=== PATIENT | female | born 2000 | race Caucasian/White ===

== ENCOUNTER 2021-02-03 17:50 | Emergency (ER) | payer OTHER ==
[2021-02-03] MEDS ORDERED: Sodium Chloride 0.9% 10 ML Syringe FLUSH PRN (18:09)
--- NOTE | 2021-02-03 18:19 | EDM.PDOC ---
ED HPI GENERAL MEDICAL PROBLEM - General Chief Complaint: [employer] Problem Stated Complaint: 4 WEEKS PREG AND CRAMPING Time Seen by Provider: 02/03/21 18:03 Source of Information: Reports: Patient, RN Notes Reviewed History Limitations: Reports: No Limitations - History of Present Illness INITIAL COMMENTS - FREE TEXT/NARRATIVE: Patient is a 20-year-old female who presents to the ER for being 4 weeks and having some lower abdominal cramping. Patient notes that her last menstrual period was January 25, 2021, she is a G1, P0. Notes that she has been having some abdominal discomfort for the last 2 days, does seem to be cramping and sharp in nature and does seem to come and go. She is not taking anything for the pain specifically. She thinks that she will be setting up with Dr. Martin for [employer] but has not had her first OB visit. She is denying any vaginal bleeding or other vaginal issues at today's visit. Does state that she is having urinary frequency but no urgency or dysuria. She is having some nausea but no vomiting or diarrhea. Patient states that she did take a home test last week and it was positive at that time. Lower Abdomen Pain Score (Numeric/FACES): 6 - Related Data Allergies Allergy/AdvReac Type Severity Reaction Status Date / Time No Known Allergies Allergy Verified 02/03/21 18:05 Home Meds: Home Meds Cefdinir [Omnicef] 300 mg PO BID 7 Days #14 cap 02/03/21 [Rx] Cholecalciferol (Vitamin D3) [Vitamin D3] 5,000 unit PO DAILY 02/03/21 [History] Past Medical History - Past Health History Medical/Surgical History: Denies Medical/Surgical History : 1 Para: 0 LMP (Approximate): Other (See Below) (12/29/20) - Infectious Disease History Infectious Disease History: Reports: Novel Coronavirus Social & Family History - Tobacco Use Tobacco Use Status *Q: Never Tobacco User - Recreational Drug Use Recreational Drug Use: No ED ROS GENERAL - Review of Systems Review Of Systems: Comprehensive ROS is negative, except as noted in HPI. ED EXAM, RENAL/ - Physical Exam Exam: See Below Exam Limited By: No Limitations General Appearance: Alert, WD/WN, No Apparent Distress Respiratory/Chest: No Respiratory Distress, Lungs Clear, Normal Breath Sounds, No Accessory Muscle Use, Chest Non-Tender Cardiovascular: Normal Peripheral Pulses, Regular Rate, Rhythm, No Edema GI/Abdominal: Normal Bowel Sounds, Soft, No Distention, No Mass, Tender (suprapubic tenderness) (Female) Exam: Deferred Extremities: Normal Inspection, Normal Capillary Refill Neurological: Alert, Oriented, Normal Cognition, No Motor/Sensory Deficits Psychiatric: Normal Affect, Normal Mood, Anxious (generalized) Skin Exam: Warm, Dry, Intact, Normal Color, No Rash Course - Vital Signs Last Recorded V/S: Last Vital Signs Temp 98.5 F 02/03/21 18:02 Pulse 101 H 02/03/21 18:02 Resp 16 02/03/21 18:02 BP 122/78 02/03/21 18:02 Pulse Ox 100 02/03/21 18:02 - Orders/Labs/Meds Orders: Active Orders 24 hr Category Date Time Status Peripheral IV Care [RC] . DIRECTED Care 02/03/21 18:09 Ordered ABO/RH TYPE [BBK] Stat Lab 02/03/21 18:09 Ordered CULTURE URINE [MREF] Urgent Lab 02/03/21 19:40 Ordered Sodium Chloride 0.9% [Saline Flush] Med 02/03/21 18:09 Ordered 10 ml FLUSH ASDIRECTED PRN Peripheral IV Insertion Adult [OM.PC] Stat Oth 02/03/21 18:09 Ordered Medication Orders Sodium Chloride (Sodium Chloride 0.9% 10 Ml Syringe) 10 ml FLUSH ASDIRECTED PRN PRN Reason: Keep Vein Open Labs: Laboratory Tests 02/03/21 02/03/21 02/03/21 Range/Units 18:20 18:20 18:20 WBC 11.08 H (3.98-10.04) K/mm3 RBC 4.51 (3.98-5.22) M/mm3 Hgb 12.9 (11.2-15.7) gm/dl Hct 38.2 (34.1-44.9) % MCV 84.7 (79.4-94.8) fl MCH 28.6 (25.6-32.2) pg MCHC 33.8 (32.2-35.5) g/dl RDW Std Deviation 41.0 (36.4-46.3) fL Plt Count 271 (182-369) K/mm3 MPV 9.9 (9.4-12.3) fl Neut % (Auto) 77.2 H (34.0-71.1) % Lymph % (Auto) 15.6 L (19.3-51.7) % [place] % (Auto) 6.6 (4.7-12.5) % Eos % (Auto) 0.2 L (0.7-5.8) Baso % (Auto) 0.2 (0.1-1.2) % Neut # (Auto) 8.56 H (1.56-6.13) K/mm3 Lymph # (Auto) 1.73 (1.18-3.74) K/mm3 [place] # (Auto) 0.73 H (0.24-0.36) K/mm3 Eos # (Auto) 0.02 L (0.04-0.36) K/mm3 Baso # (Auto) 0.02 (0.01-0.08) K/mm3 HCG, Qual Positive H (NEGATIVE) HCG, Quant 2109.0 mIU/mL Urine Color (Yellow) Urine Appearance (Clear) Urine pH (5.0-8.0) Ur Specific Hermann (1.005-1.030) Urine Protein (Negative) Urine Glucose (UA) (Negative) Urine Ketones (Negative) Urine Occult Blood (Negative) Urine Nitrite (Negative) Urine Bilirubin (Negative) Urine Urobilinogen (0.2-1.0) Ur Leukocyte Esterase (Negative) Urine RBC (0-5) /hpf Urine WBC (0-5) /hpf Ur Squamous Epith Cells (0-5) /hpf Urine Bacteria (FEW) /hpf Urine Mucus (FEW) /hpf 02/03/21 Range/Units 18:40 WBC (3.98-10.04) K/mm3 RBC (3.98-5.22) M/mm3 Hgb (11.2-15.7) gm/dl Hct (34.1-44.9) % MCV (79.4-94.8) fl MCH (25.6-32.2) pg MCHC (32.2-35.5) g/dl RDW Std Deviation (36.4-46.3) fL Plt Count (182-369) K/mm3 MPV (9.4-12.3) fl Neut % (Auto) (34.0-71.1) % Lymph % (Auto) (19.3-51.7) % [place] % (Auto) (4.7-12.5) % Eos % (Auto) (0.7-5.8) Baso % (Auto) (0.1-1.2) % Neut # (Auto) (1.56-6.13) K/mm3 Lymph # (Auto) (1.18-3.74) K/mm3 [place] # (Auto) (0.24-0.36) K/mm3 Eos # (Auto) (0.04-0.36) K/mm3 Baso # (Auto) (0.01-0.08) K/mm3 HCG, Qual (NEGATIVE) HCG, Quant mIU/mL Urine Color Yellow (Yellow) Urine Appearance Clear (Clear) Urine pH 6.0 (5.0-8.0) Ur Specific Hermann > or = 1.030 (1.005-1.030) Urine Protein Negative (Negative) Urine Glucose (UA) Negative (Negative) Urine Ketones Trace H (Negative) Urine Occult Blood Negative (Negative) Urine Nitrite Positive H (Negative) Urine Bilirubin Negative (Negative) Urine Urobilinogen 0.2 (0.2-1.0) Ur Leukocyte Esterase 1+ H (Negative) Urine RBC 0-5 (0-5) /hpf Urine WBC 10-20 H (0-5) /hpf Ur Squamous Epith Cells 5-10 H (0-5) /hpf Urine Bacteria Many H (FEW) /hpf Urine Mucus Rare (FEW) /hpf Meds: Medications Generic Name Dose Route Start Last Admin Trade Name Freq PRN Reason Stop Dose Admin Sodium Chloride 10 ml 02/03/21 18:09 Sodium Chloride 0.9% 10 Ml Syringe FLUSH ASDIRECTED PRN Keep Vein Open - Re-Assessments/Exams Free Text/Narrative Re-Assessment/Exam: 02/03/21 18:24 Patient presents to the ER for evaluation of her abdominal cramping in early , we will get a transvaginal ultrasound, get basic labs for initial evaluation. 02/03/21 19:40 Laboratory evaluation has started to result, patient CBC is unremarkable, she does have a positive qualitative test, and her quantitative hCG is 2109. The pat ient's urinalysis is grossly positive for UTI, patient will be started on Omnicef, this might be some of the abdominal discomfort she was having. Ultrasound demonstrated a small cystic area within the endometrial cavity presumable due to a gestational sac but no pole or yolk sac is seen at this early time, the gestational sac was measured at roughly 5 weeks 1 day gestation. Does recommend repeat study in 11 days or so to confirm normal developing . Still awaiting blood typing results at this time. Departure - Departure Time of Disposition: 19:42 Disposition: Home, Self-Care 01 Condition: Good Clinical Impression: Abdominal pain affecting UTI (urinary tract infection) Qualifiers: Urinary tract infection type: acute cystitis Hematuria presence: without hematuria Qualified Code(s): N30.00 - Acute cystitis without hematuria - Discharge Information *PRESCRIPTION DRUG MONITORING PROGRAM REVIEWED*: No *COPY OF PRESCRIPTION DRUG MONITORING REPORT IN PATIENT ZARIA: No Prescriptions: Cefdinir [Omnicef] 300 mg PO BID 7 Days #14 cap Instructions: Urinary Tract Infection, Adult, [id number], Abdominal Pain During , [id number] Referrals: Yamilet Grover [employer] [Primary Care Provider] - Forms: ED Department Discharge Additional Instructions: You were evaluated in the ER today regarding your abdominal pain in . You did have some labs drawn, and these were within normal limits, your hCG level was 2109. Your ultrasound demonstrated a small gestational sac that measured roughly 5 weeks 1 day. No heartbeat was identified at today's visit however again this is very early , and this should likely develop within the next few weeks. An ultrasound should be repeated in roughly 10 to 14 days, to make sure that the is progressing as expected. You will need to call the [employer] whom you are planning to set up care with, on Saturday morning to get this appointment scheduled for further evaluation. [facility] number [phone], as you noted you were going to set up with Dr. Martin. Recommend that you do not lift anything heavier than a gallon of milk (5 lbs), do not engage in sexual activities, try to get as much pelvic rest as possible for the next few days. Please try not to exert yourself, rest and relax, and take it easy. If you start bleeding through more than 1-2 maxi pads every couple hours, this would be cause for concern to return to the ER for immediate management. Urine screen was also positive for UTI at today's visit, you have been started on an oral antibiotic Omnicef, you need to take 1 tablet two times a day until gone. This medication was electronically sent to the [place] pharmacy located in the [employer] [facility]. Please return to the ED at any time if your symptoms change or worsen. Sepsis Event Note (ED) - Evaluation Sepsis Screening Result: No Definite Risk - Focused Exam Vital Signs: Vital Signs Temp Pulse Resp BP Pulse Ox 02/03/21 18:02 98.5 F 101 H 16 122/78 100 - My Orders Last 24 Hours: My Active Orders 02/03/21 18:09 Peripheral IV Care [RC] . DIRECTED ABO/RH TYPE [BBK] Stat Sodium Chloride 0.9% [Saline Flush] 10 ml FLUSH ASDIRECTED PRN Peripheral IV Insertion Adult [OM.PC] Stat 02/03/21 19:40 CULTURE URINE [MREF] Urgent - Assessment/Plan Last 24 Hours: My Active Orders 02/03/21 18:09 Peripheral IV Care [RC] . DIRECTED ABO/RH TYPE [BBK] Stat Sodium Chloride 0.9% [Saline Flush] 10 ml FLUSH ASDIRECTED PRN Peripheral IV Insertion Adult [OM.PC] Stat 02/03/21 19:40 CULTURE URINE [MREF] Urgent
--- NOTE | 2021-02-03 19:18 | US ---
First trimester obstetrical ultrasound: Multiple real-time images were obtained transvaginally. Comparison: No previous study for current . Small cystic area within the endometrial cavity. This could represent very early gestational sac but no pole or yolk sac is seen at this early time. Maternal ovaries appear within normal limits. Measurements: Gestational sac: 0.4 cm - 5 weeks 1 day Impression: 1. Small cystic area within the endometrial cavity presumably due to gestational sac. No pole or yolk sac is seen at this early time. 2. Other portions of the study are unremarkable. 3. If patient does not miscarry, recommend follow-up study in 11 days to confirm normal developing . Diagnostic code #1
== END 2021-02-03 20:00 | disposition home or self-care (01) ==
LOC: JD.ED 17:50
DX: O23.11 Infections of bladder in pregnancy, first trimester (principal); Z86.16 Personal history of COVID-19; Z3A.01 Less than 8 weeks gestation of pregnancy
CPT/HCPCS: 36415; 76817; 76817-26; 81001; 84702; 84703; 85025; 86900; 86901; 87086; 87088; 87186; 99283; 99284-25

== ENCOUNTER 2021-10-10 11:59 | Inpatient (IN) | payer BC, MEDICAID ==
[~2021-10-10 11:59] MED LIST: Bupivacaine 0.25% 10 ML SDV ONE
[2021-10-10] MEDS ORDERED: Ondansetron 4 MG/2 ML SDV IVPUSH PRN (12:34)
[2021-10-10] MEDS ORDERED: Nalbuphine 10 MG/1 ML Vial IVPUSH PRN (12:34)
[2021-10-10] MEDS ORDERED: Lidocaine 1% 50 ML MDV INJECT ONE (12:34)
[2021-10-10] MEDS ORDERED: Sodium Chloride 0.9% 10 ML Syringe FLUSH PRN (12:34)
[2021-10-10] MEDS ORDERED: Oxytocin/Lactated Ringers 10 UNIT/1,000 ML BAG IV SCH ×2 (12:45)
[2021-10-10] MEDS ORDERED: Ampicillin 2 GM in Sodium Chloride 0.9% 100 ML IV ONE (13:00)
[2021-10-10] MEDS: Lactated Ringers 1,000 ML IV SCH ×3 (13:28→22:28)
[2021-10-10] MEDS ORDERED: diphenhydrAMINE 50 MG/ML SDV IVPUSH PRN (16:53)
[2021-10-10] MEDS ORDERED: Bupivacaine/fentaNYL/NS 100 ML Bag EPIDUR PRN (16:53)
[2021-10-10] MEDS ORDERED: fentaNYL 100 MCG/2 ML SDV EPIDUR PRN (16:53)
[2021-10-10] MEDS ORDERED: ePHEDrine 50 MG/ML SDV IVPUSH PRN (16:53)
[2021-10-10] MEDS: Ampicillin 1 GM in Sodium Chloride 0.9% 100 ML IV SCH ×2 (17:03→21:10)
[2021-10-10] MEDS ORDERED: Lidocaine 1% 50 ML MDV ONE (20:04)
[2021-10-10] MEDS ORDERED: Sodium Chloride 0.9% 10 ML Syringe FLUSH SCH (21:00)
[2021-10-11] MEDS ORDERED: Benzocaine/Menthol 20%-0.5% Spray 78 GM Cannister TOP PRN (00:25)
[2021-10-11] MEDS ORDERED: Ibuprofen 600 MG Tab PO PRN (00:25)
[2021-10-11] MEDS ORDERED: Witch Hazel Medicated Pads 40/Jar TOP PRN (00:25)
[2021-10-11] MEDS ORDERED: Docusate Sodium 100 MG Cap PO PRN (00:25)
[2021-10-11] MEDS ORDERED: Acetaminophen 325 MG Tab PO PRN (00:25)
== END 2021-10-12 09:35 | disposition home or self-care (01) | DRG 807 ==
LOC: JD.OBCHECK 11:59 → JD.OB 12:03 → JD.OBCHECK 12:46 → OBSVTOIN 23:55 → JD.OB 23:56
PROVIDERS: ADMIT Obstetrics & Gynecology; ATTEND Obstetrics & Gynecology
PROC: 10E0XZZ Delivery of Products of Conception, External Approach (ICD-10-PCS; principal; 2021-10-10)
PROC: 10907ZC Drainage of Amniotic Fluid, Therapeutic from Products of Conception, Via Natural or Artificial Opening (ICD-10-PCS; 2021-10-10)
PROC: 3E0R3BZ Introduction of Anesthetic Agent into Spinal Canal, Percutaneous Approach (ICD-10-PCS; 2021-10-10)
PROC: 00HU33Z Insertion of Infusion Device into Spinal Canal, Percutaneous Approach (ICD-10-PCS; 2021-10-10)
DX: O48.0 Post-term pregnancy (principal); Z37.0 Single live birth; O99.824 Streptococcus B carrier state complicating childbirth; O99.52 Diseases of the respiratory system complicating childbirth; J45.909 Unspecified asthma, uncomplicated; O69.81X0 Labor and delivery complicated by cord around neck, without compression, not applicable or unspecified; Z20.822 Contact with and (suspected) exposure to COVID-19; Z3A.40 40 weeks gestation of pregnancy; Z86.16 Personal history of COVID-19
CPT/HCPCS: 01967; 36415; 51702; 59025; 59409; 82565; 82570; 83615; 84156; 84450; 84460; 84520; 84550; 85025; 86592; 86850; 86900; 86901; A9270-GY; J0290; J2300; J2590; J3010; J3490; J7120; U0002

== ENCOUNTER 2021-10-15 01:58 | Inpatient (IN) | payer BC, MEDICAID ==
[2021-10-15] MEDS ORDERED: Lactated Ringers 1,000 ML IV ONE ×2 (02:27→03:13)
[2021-10-15] MEDS ORDERED: Lactated Ringers 500 ML IV ONE (04:19)
[2021-10-15] MEDS ORDERED: Lactated Ringers 1,000 ML IV SCH (04:30)
[2021-10-15] MEDS ORDERED: cefTRIAXone 2 GM in Sodium Chloride 0.9% 100 ML IV ONE (04:45)
[2021-10-15] MEDS ORDERED: Iopamidol 755 Mg/ML 100 ML Bottle IVPUSH ONE (04:50)
[2021-10-15] MEDS ORDERED: Sodium Chloride 0.9% 10 ML SDV FLUSH ONE (04:50)
[2021-10-15] MEDS ORDERED: Sodium Chloride 0.9% 100 ML IV SCH (05:00)
[2021-10-15] MEDS ORDERED: Sodium Chloride 0.9% 1,000 ML IV SCH (05:00)
[2021-10-15] MEDS: Acetaminophen 325 MG Tab PO PRN ×3 (06:38→18:04)
[2021-10-15] MEDS ORDERED: Magnesium Hydroxide 400 MG/5 ML Susp 30 ML Cup PO PRN (07:49)
[2021-10-15] MEDS ORDERED: Ondansetron 4 MG/2 ML SDV IVPUSH PRN (07:49)
[2021-10-15] MEDS ORDERED: Polyethylene Glycol 3350 Powder 17 GM Packet PO PRN (07:52)
[2021-10-15] MEDS: Docusate Sodium 100 MG Cap PO SCH ×3 (10:00→20:00)
[2021-10-15] MEDS: Ibuprofen 600 MG Tab PO PRN ×2 (14:53→20:24)
[2021-10-16] MEDS: Acetaminophen 325 MG Tab PO PRN ×3 (00:32→18:22)
[2021-10-16] MEDS: Ibuprofen 600 MG Tab PO PRN ×2 (04:11→15:29)
[2021-10-16] MEDS: cefTRIAXone 1 GM in Sodium Chloride 0.9% 100 ML IV SCH (04:13)
[2021-10-16] MEDS: Docusate Sodium 100 MG Cap PO SCH ×2 (09:03→20:36)
[2021-10-17] MEDS: Ibuprofen 600 MG Tab PO PRN (03:05)
[2021-10-17] MEDS: cefTRIAXone 1 GM in Sodium Chloride 0.9% 100 ML IV SCH (04:09)
[2021-10-17] MEDS: Docusate Sodium 100 MG Cap PO SCH ×2 (09:23→20:14)
[2021-10-18] MEDS ORDERED: cefTRIAXone 2 GM in Sodium Chloride 0.9% 100 ML IV SCH (04:00)
== END 2021-10-18 10:25 | disposition home or self-care (01) | DRG 561 ==
LOC: JD.ED 01:58 → JD.OB 05:45 → OBSVTOIN 05:45
PROVIDERS: ADMIT Obstetrics & Gynecology; ATTEND Obstetrics & Gynecology
DX: O85 Puerperal sepsis (principal); O99.53 Diseases of the respiratory system complicating the puerperium; J45.909 Unspecified asthma, uncomplicated; Z86.16 Personal history of COVID-19; Z20.822 Contact with and (suspected) exposure to COVID-19
CPT/HCPCS: 36415; 71275; 71275-26; 80053; 81001; 83605; 85025; 85610; 85730; 87040; 87077; 87086; 87088; 87154; 87186; 87502-QW; 93005; 93010; 96365; 99285; 99285-25; A9270-GY; J0696; J7030; J7120; Q9967; U0002

== ENCOUNTER 2021-11-16 20:53 | Emergency (ER) | payer BC, MEDICAID | END 2021-11-16 23:06 | disposition home or self-care (01) | LOC: JD.ED 20:53 | DX: K62.5 Hemorrhage of anus and rectum (principal); Z86.16 Personal history of COVID-19; Z79.899 Other long term (current) drug therapy; Z91.018 Allergy to other foods | CPT/HCPCS: 99282; 99283 ==

== ENCOUNTER 2022-01-02 20:56 | Observation (INO) | payer BC, MEDICAID ==
[2022-01-02] MEDS ORDERED: Acetaminophen 325 MG Tab PO ONE (21:31)
[2022-01-02] MEDS ORDERED: Sodium Chloride 0.9% 1,000 ML IV ONE (21:31)
[2022-01-02] MEDS ORDERED: Morphine 4 MG/ML Syringe IVPUSH ONE (22:14)
[2022-01-02 22:42] LABS: ESTIMATED GFR > 60 mL/min (>60)
[2022-01-03] MEDS ORDERED: Morphine 4 MG/ML Syringe IVPUSH PRN (02:34)
[2022-01-03] MEDS ORDERED: Ondansetron 4 MG/2 ML SDV IVPUSH PRN ×2 (02:34→11:46)
[2022-01-03] MEDS: Sodium Chloride 0.9% 1,000 ML IV SCH ×3 (02:43→16:49)
[2022-01-03] MEDS ORDERED: Bupivacaine 0.5%/EPINEPHrine 1:200,000 50 ML MDV ONE (10:45)
[2022-01-03] MEDS ORDERED: Lidocaine 1% 5 ML VIAL ONE (11:08)
[2022-01-03] MEDS ORDERED: Propofol 200 MG/20 ML SDV ONE (11:08)
[2022-01-03] MEDS ORDERED: Rocuronium 50 MG/5 ML Vial ONE (11:09)
[2022-01-03] MEDS ORDERED: fentaNYL 250 MCG/5 ML SDV ONE (11:10)
[2022-01-03] MEDS ORDERED: HYDROmorphone 0.5 MG/0.5 ML Syringe IVPUSH PRN (11:46)
[2022-01-03] MEDS ORDERED: fentaNYL 100 MCG/2 ML SDV IVPUSH PRN (11:46)
[2022-01-03] MEDS ORDERED: Dexamethasone 4 MG/ML 5 ML MDV ONE (12:14)
[2022-01-03] MEDS ORDERED: diphenhydrAMINE 50 MG/ML SDV ONE (12:14)
[2022-01-03] MEDS ORDERED: ceFAZolin 1 GM Vial ONE (12:16)
[2022-01-03] MEDS ORDERED: Sodium Chloride 0.9% 50 ML SDV ONE ×2 (12:24→13:36)
[2022-01-03] MEDS: Lidocaine 1% 30 ML SDV ONE ×2 (12:28→12:46)
[2022-01-03] MEDS ORDERED: Lidocaine 1% 30 ML SDV ONE (12:35)
[2022-01-03] MEDS: Iopamidol 612 MG/ML 50 ML SDV ONE ×2 (12:47→13:45)
[2022-01-03] MEDS: Sodium Chloride 0.9% 50 ML SDV ONE ×2 (12:48→13:45)
[2022-01-03] MEDS ORDERED: Glucagon,Human Recombinant 1 MG Vial ONE (13:33)
[2022-01-03] MEDS ORDERED: Ondansetron 4 MG/2 ML SDV ONE (13:51)
[2022-01-03] MEDS ORDERED: Ketorolac 30 MG/ML SDV IVPUSH ONE (14:59)
== END 2022-01-03 19:25 | disposition home or self-care (01) ==
LOC: JD.ED 20:56 → JD.MS 01-03 00:54
PROVIDERS: ADMIT Surgery; ATTEND Surgery
DX: K80.12 Calculus of gallbladder with acute and chronic cholecystitis without obstruction (principal); J45.909 Unspecified asthma, uncomplicated; F41.9 Anxiety disorder, unspecified; F32.A Depression, unspecified; Z86.16 Personal history of COVID-19; Z79.899 Other long term (current) drug therapy; Z01.812 Encounter for preprocedural laboratory examination; Z20.822 Contact with and (suspected) exposure to COVID-19
CPT/HCPCS: 36415; 47563; 76000; 80053; 80076; 81001; 83605; 83690; 85025; 85610; 87635; 88304; 96374; 99285; A9270; G0378; J0690; J1100; J1200; J1610; J1885; J2270; J2405; J2704; J3010; J7030; Q9967; 00790; 99283; J3490; U0002

== ENCOUNTER 2022-01-04 12:35 | Emergency (ER) | payer BC, MEDICAID ==
[2022-01-04] MEDS ORDERED: HYDROmorphone 1 MG/ML Syringe IVPUSH ONE (13:23)
[2022-01-04] MEDS ORDERED: Ondansetron 4 MG/2 ML SDV IVPUSH ONE (13:23)
[2022-01-04 13:58] LABS: ESTIMATED GFR > 60 mL/min (>60)
[2022-01-04] MEDS ORDERED: HYDROmorphone 0.5 MG/0.5 ML Syringe IVPUSH ONE (15:32)
== END 2022-01-04 16:18 ==
LOC: JD.ED 12:35
DX: E80.6 Other disorders of bilirubin metabolism (principal); Z86.16 Personal history of COVID-19; Z91.018 Allergy to other foods; Z90.49 Acquired absence of other specified parts of digestive tract; Z79.899 Other long term (current) drug therapy
CPT/HCPCS: 36415; 74018; 80053; 83690; 85025; 86140; 96374; 96375; 96376; 99285; J1170; J2405; 99284

== ENCOUNTER 2023-03-30 06:55 | Inpatient (IN) | payer BC, MEDICAID ==
[2023-03-30] MEDS ORDERED: Sodium Chloride 0.9% 10 ML Syringe FLUSH PRN (07:11)
[2023-03-30] MEDS ORDERED: Nalbuphine 10 MG/0.5 ML Syringe IVPUSH PRN (07:11)
[2023-03-30] MEDS ORDERED: Lidocaine 1% 50 ML MDV INJECT ONE (07:11)
[2023-03-30] MEDS ORDERED: Acetaminophen 325 MG Tab PO PRN ×2 (07:11→13:10)
[2023-03-30] MEDS ORDERED: Ondansetron 4 MG/2 ML SDV IVPUSH PRN (07:11)
[2023-03-30] MEDS ORDERED: Lactated Ringers 1,000 ML IV SCH (07:15)
[2023-03-30] MEDS ORDERED: Oxytocin/Lactated Ringers 10 UNIT/1,000 ML BAG IV SCH ×2 (07:15→07:30)
[2023-03-30 07:50] LABS: HEMATOCRIT 42.1 % (37.0-47.0); HEMOGLOBIN 14.2 gm/dl (12.0-16.0); MEAN CORPUSCULAR HEMOGLOBIN 30.4 pg (28.0-32.0); MEAN CORPUSCULAR HGB CONC 33.7 g/dl (32.0-36.0); MEAN CORPUSCULAR VOLUME 90.1 fl (83.0-99.0); PLATELET COUNT,PLT 157 K/mm3 (150-400); RED BLOOD CELL COUNT 4.67 M/mm3 (4.10-5.30); WHITE BLOOD CELL COUNT,WBC 11.12 K/mm3 (3.9-11.3)
[2023-03-30] MEDS ORDERED: Sodium Chloride 0.9% 10 ML Syringe FLUSH SCH (09:00)
[2023-03-30] MEDS ORDERED: Benzocaine/Menthol 20%-0.5% Spray 78 GM Cannister TOP PRN (13:10)
[2023-03-30] MEDS ORDERED: Witch Hazel Medicated Pads 40/Jar TOP PRN (13:10)
[2023-03-30] MEDS ORDERED: Ibuprofen 600 MG Tab PO PRN (13:10)
[2023-03-30] MEDS ORDERED: Docusate Sodium 100 MG Cap PO PRN (13:10)
== END 2023-03-31 13:00 | disposition home or self-care (01) | DRG 560 ==
LOC: JD.OB 06:55 → OBSVTOIN 12:57 → JD.OB 12:57
PROVIDERS: ADMIT Obstetrics & Gynecology; ATTEND Obstetrics & Gynecology
PROC: 10E0XZZ Delivery of Products of Conception, External Approach (ICD-10-PCS; principal; 2023-03-31)
PROC: 10907ZC Drainage of Amniotic Fluid, Therapeutic from Products of Conception, Via Natural or Artificial Opening (ICD-10-PCS; principal; 2023-03-31)
DX: O48.0 Post-term pregnancy (principal); O69.81X0 Labor and delivery complicated by cord around neck, without compression, not applicable or unspecified; Z37.0 Single live birth; Z3A.40 40 weeks gestation of pregnancy
CPT/HCPCS: 36415; 59025; 59409; 85027; 86592; 86850; 86900; 86901; J2300; J2590; J7120

== ENCOUNTER 2024-10-07 13:51 | Inpatient (IN) | payer BC, MEDICAID ==
[2024-10-07] MEDS ORDERED: Acetaminophen 325 MG Tab PO PRN (14:20)
[2024-10-07] MEDS ORDERED: Ondansetron 4 MG/2 ML SDV IVPUSH PRN (14:20)
[2024-10-07] MEDS ORDERED: Lidocaine 1% 50 ML MDV INJECT PRN (14:20)
[2024-10-07] MEDS ORDERED: Calcium Carbonate 500 MG Tab.Chew PO PRN (14:20)
[2024-10-07 15:17] LABS: BASOPHILS PERCENT AUTO 0.2 % (0.0-1.0); EOSINOPHILS PERCENT AUTO 1.3 % (0.0-6.0); HEMATOCRIT 39.5 % (37.0-47.0); HEMOGLOBIN 12.9 gm/dl (12.0-16.0); IMMATURE GRAN PERCENT AUTO 0.4 % (0.0-0.4); LYMPHOCYTES PERCENT AUTO 13.9 % (24.0-44.0); MEAN CORPUSCULAR HEMOGLOBIN 27.3 pg (28.0-32.0); MEAN CORPUSCULAR HGB CONC 32.7 g/dl (32.0-36.0); MEAN CORPUSCULAR VOLUME 83.7 fl (83.0-99.0); MEAN PLATELET VOLUME 10.6 fl (9.4-12.3); MONOCYTES PERCENT AUTO 6.3 % (0.0-8.0); NEUTROPHILS PERCENT AUTO 77.9 % (41.0-71.0); PLATELET COUNT,PLT 155 K/mm3 (150-400); RED BLOOD CELL COUNT 4.72 M/mm3 (4.10-5.30); WHITE BLOOD CELL COUNT,WBC 10.19 K/mm3 (3.9-11.3)
[2024-10-07 15:18] LABS: EOSINOPHILS ABSOLUTE AUTO 0.1 K/mm3 (0.0-0.4); IMMATURE GRAN ABSOLUTE AUTO 0.04 K/mm3 (0.00-0.05); LYMPHOCYTES ABSOLUTE AUTO 1.4 K/mm3 (1.0-4.8); MONOCYTES ABSOLUTE AUTO 0.6 K/mm3 (0.0-0.8); NEUTROPHILS ABSOLUTE AUTO 7.9 K/mm3 (1.8-7.7)
[2024-10-07] MEDS: Oxytocin/0.9 % Sodium Chloride 30 UNIT/500 ML BAG IV SCH ×2 (16:00→21:40)
[2024-10-07] MEDS: Lactated Ringers 1,000 ML IV SCH (16:00)
[2024-10-07] MEDS: Nalbuphine 10 MG/1 ML Vial IVPUSH PRN (18:32)
[2024-10-07] MEDS ORDERED: ePHEDrine 50 MG/ML SDV IVPUSH PRN (19:52)
[2024-10-07] MEDS ORDERED: diphenhydrAMINE 50 MG/ML SDV IVPUSH PRN (19:52)
[2024-10-07] MEDS: Bupivacaine/fentaNYL/NS 100 ML Bag EPIDUR PRN (20:01)
[2024-10-07] MEDS ORDERED: Benzocaine/Menthol 20%-0.5% Spray 78 GM Cannister TOP PRN (21:08)
[2024-10-07] MEDS ORDERED: Witch Hazel Medicated Pads 40/Jar TOP PRN (21:08)
[2024-10-07] MEDS: Ibuprofen 800 MG Tab PO SCH (23:53)
[2024-10-08] MEDS: Acetaminophen 325 MG Tab PO PRN (13:00)
[2024-10-09] MEDS: Sennosides 8.6 MG Tab PO PRN (03:17)
== END 2024-10-09 10:00 | disposition home or self-care (01) | DRG 560 ==
LOC: JD.OBCHECK 13:51 → JD.OB 13:52 → JD.OBCHECK 14:19 → JD.OB 14:20 → OBSVTOIN 21:08 → JD.OB 21:09
PROVIDERS: ADMIT Obstetrics & Gynecology; ATTEND Obstetrics & Gynecology
PROC: 10E0XZZ Delivery of Products of Conception, External Approach (ICD-10-PCS; principal; 2024-10-07)
PROC: 3E0R3BZ Introduction of Anesthetic Agent into Spinal Canal, Percutaneous Approach (ICD-10-PCS; 2024-10-07)
PROC: 00HU33Z Insertion of Infusion Device into Spinal Canal, Percutaneous Approach (ICD-10-PCS; 2024-10-07)
DX: O48.0 Post-term pregnancy (principal); Z37.0 Single live birth; O42.02 Full-term premature rupture of membranes, onset of labor within 24 hours of rupture; O69.81X0 Labor and delivery complicated by cord around neck, without compression, not applicable or unspecified; O71.82 Other specified trauma to perineum and vulva; Z3A.40 40 weeks gestation of pregnancy
CPT/HCPCS: 36415; 59025; 59409; 85025; 86592; 86850; 86900; 86901; A9270-GY; J0665; J2300; J3490; J7120; J7999